=== PATIENT | female | born 1990 | race African-American/Black ===

== ENCOUNTER 2018-12-11 22:47 | Inpatient (IN) | payer OTHER ==
[2018-12-11 23:26] LABS: Amphetamine Screen,Urine Not Detected (NotDetected); Barbiturate Screen,Urine Not Detected (NotDetected); Benzodiazepines Screen,Urine Not Detected (NotDetected); Cocaine Screen,Urine Not Detected (NotDetected); Methadone Screen, Urine Not Detected (NotDetected); Opiate Screen,Urine Not Detected (NotDetected); Oxycodone Screen, Urine Not Detected (NotDetected); Phencyclidine Screen,Urine Not Detected (NotDetected); Tricyclic Antidepressant,Urine Not Detected (NotDetected); Urn Cannabinoid Scrn Detected (NotDetected)
--- NOTE | 2018-12-12 01:01 | ED ---
Psych HPI - General Source: patient Mode of arrival: EMS <Cheri Bonner - Last Filed: 12/12/18 04:21> <Fidel Granados - Last Filed: 12/12/18 08:29> - General Chief Complaint: Psychiatric Symptoms Stated Complaint: mental health Time Seen by Provider: 12/11/18 23:59 - History of Present Illness Initial Comments: 28-year-old female patient is brought to the emergency department today for psychiatric evaluation. Patient reports that her and is concerned because she recently had her children taken from her and she doesn't believe that she is thinking right or handling the situation well. Patient states that she is stressed out and does have a history of depression. States that she has been seeing "spirits" and helped one "cross over today". Patient states that her aunt is concerned about this and doesn't believe in spirits so she sent her here for further evaluation. Patient denies any suicidal or homicidal ideation. She denies taking any medications currently for psychiatric illness. Denies any alcohol or drug use. Patient denies any recent rash, fever, chills, shortness breath, chest pain, abdominal pain, nausea, vomiting, diarrhea, constipation, back pain, numbness, tingling, dizziness, weakness, hematuria, dysuria, urinary urgency, urinary frequency, headache, visual changes, or any other complaints. (Cheri Bonner) - Related Data Home Medications Medication Instructions Recorded Confirmed No Known Home Medications 12/11/18 12/11/18 Allergies Allergy/AdvReac Type Severity Reaction Status Date / Time clonazepam [From Klonopin] AdvReac TWITCHING Verified 12/11/18 23:16 DISORDER Review of Systems ROS Other: All systems not noted in ROS Statement are negative. <Cheri Bonner - Last Filed: 12/12/18 04:21> ROS Other: All systems not noted in ROS Statement are negative. <Fidel Granados - Last Filed: 12/12/18 08:29> ROS Statement: Those systems with pertinent positive or pertinent negative responses have been documented in the HPI. Past Medical History Additional Past Medical History / Comment(s): anxiety History of Any Multi-Drug Resistant Organisms: None Reported Past Surgical History: Bariatric Surgery Past Psychological History: Anxiety, Depression Smoking Status: Current every day smoker Past Alcohol Use History: None Reported Past Drug Use History: None Reported <Cheri Bonner - Last Filed: 12/12/18 04:21> General Exam Limitations: no limitations General appearance: alert, in no apparent distress, other (So well-developed, well-nourished adult female patient in no acute distress. Vital signs upon presentation are temperature 98.6F, pulse 87, respirations 20, blood pressure 121/83, pulse ox 97% on room air.) Eye exam: Present: normal appearance, PERRL, EOMI. Absent: scleral icterus, conjunctival injection, periorbital swelling ENT exam: Present: normal exam, normal oropharynx, mucous membranes moist Respiratory exam: Present: normal lung sounds bilaterally. Absent: respiratory distress, wheezes, rales, rhonchi, stridor Cardiovascular Exam: Present: regular rate, normal rhythm, normal heart sounds. Absent: systolic murmur, diastolic murmur, rubs, gallop, clicks GI/Abdominal exam: Present: soft, normal bowel sounds. Absent: distended, tenderness, guarding, rebound, rigid Neurological exam: Present: alert, oriented X3, CN II-XII intact Psychiatric exam: Present: other (Pressured speech, flight of ideas). Absent: homicidal ideation, suicidal ideation Skin exam: Present: warm, dry, intact, normal color. Absent: rash <Cheri Bonner - Last Filed: 12/12/18 04:21> Course Vital Signs 12/11/18 12/12/18 12/12/18 22:55 02:57 06:48 Temperature 98.6 F Pulse Rate 87 84 57 L Respiratory 20 16 16 Rate Blood Pressure 121/83 132/94 99/64 O2 Sat by Pulse 97 99 100 Oximetry Medical Decision Making <Cheri Bonner - Last Filed: 12/12/18 04:21> <Fidel Granados - Last Filed: 12/12/18 08:29> - Medical Decision Making 28-year-old female patient presented to the emergency department today for psychiatric evaluation. Patient does admit to seeing spirits. She does have pressured speech and flight of ideas during history and physical. Physical exam is unremarkable. She has yet to be evaluated by emergency psychiatric services. Care will be handed over to Dr. Marcum. (Bantle,Cheri M) Patient evaluated by EPS, will sign in for further psychiatric evaluation and treatment. Patient will be admitted to this institution. (Fidel Granados) - Lab Data Lab Results 12/11/18 12/11/18 Range/Units 23:00 23:00 Urine HCG, Qual Not Detected (Not Detectd) Urine Opiates Screen Not Detected (NotDetected) Ur Oxycodone Screen Not Detected (NotDetected) Urine Methadone Screen Not Detected (NotDetected) Ur Propoxyphene Screen Not Detected (NotDetected) Ur Barbiturates Screen Not Detected (NotDetected) U Tricyclic Antidepress Not Detected (NotDetected) Ur Phencyclidine Scrn Not Detected (NotDetected) Ur Amphetamines Screen Not Detected (NotDetected) U Methamphetamines Scrn Detected H (NotDetected) U Benzodiazepines Scrn Not Detected (NotDetected) Urine Cocaine Screen Not Detected (NotDetected) U Marijuana (THC) Screen Detected H (NotDetected) Disposition <Cheri Bonner - Last Filed: 12/12/18 04:21> Is patient prescribed a controlled substance at d/c from ED?: No Decision to Admit Reason: Admit from EC Decision Date: 12/12/18 Decision Time: 08:29 <Fidel Granados - Last Filed: 12/12/18 08:29> Clinical Impression: Depression, Psychosis Disposition: ADMITTED IP TO THIS [facility] Condition: Stable Referrals: None,Stated [Primary Care Provider] - 1-2 days
[2018-12-12] MEDS ORDERED: NICOTINE 21MG/24HR PATCH TRANSDERM STA (14:20)
[2018-12-12 16:01] VITALS: BMI 30.5
[2018-12-12] MEDS ORDERED: MAGNESIUM HYDROXIDE 2,400 MG/10 ML CUP PO PRN (17:01)
[2018-12-12] MEDS ORDERED: LORazepam 1 MG TAB PO PRN (17:01)
[2018-12-12] MEDS ORDERED: ZIPRASIDONE 20 MG VIAL IM PRN (17:01)
[2018-12-12] MEDS ORDERED: MAG HYDROX/AL HYDROX/SIMETH 30 ML CUP PO PRN (17:01)
--- NOTE | 2018-12-12 19:08 | P.MDCNMH ---
History of Present Illness H&P Date: 12/12/18 Chief Complaint: Finger laceration 28-year-old female with no significant past medical history presents the ED for psychiatric evaluation. We have been consulted for medical management of the patient. Patient reports cutting her right finger with a razor knife as she was trying to open a package. Patient is able to rinse out the finger lead itself dry. She denies any tetanus shot. She denies any nausea or vomiting. No fever or chills. Otherwise, patient has no complaints. She denies any headache, lower extremity edema, chest pain, shortness of breath, palpitations, changes in urination or bowel habits. No changes in appetite or weight. No dizziness, numbness, tingling, weakness of the extremities. Patient is requesting to speak with a psychiatrist in order to leave. Review of Systems All systems: negative Past Medical History Additional Past Medical History / Comment(s): anxiety History of Any Multi-Drug Resistant Organisms: None Reported Past Surgical History: Bariatric Surgery Past Psychological History: Anxiety, Depression Smoking Status: Current every day smoker Past Alcohol Use History: None Reported Past Drug Use History: None Reported Medications and Allergies Home Medications Medication Instructions Recorded Confirmed Type No Known Home Medications 12/11/18 12/11/18 History Allergies Allergy/AdvReac Type Severity Reaction Status Date / Time clonazepam [From Klonopin] AdvReac TWITCHING Verified 12/12/18 16:02 DISORDER Physical Exam Vitals: Vital Signs Temp Pulse Pulse Resp BP BP Pulse Ox 12/12/18 15:49 97.4 F L 72 18 109/74 98 12/12/18 15:14 98.8 F 89 18 114/79 99 12/12/18 13:53 89 18 110/69 99 12/12/18 06:48 57 L 16 99/64 100 12/12/18 02:57 84 16 132/94 99 12/11/18 22:55 98.6 F 87 20 121/83 97 General: [non toxic], [no distress], [appears at stated age] Derm: [warm], [dry] Head: [atraumatic], [normocephalic], [symmetric] Eyes: [EOMI], [no lid lag], [anicteric sclera] Mouth: [no lip lesion], [mucus membranes moist] Cardiovascular: [S1S2 reg], [no murmur], [positive posterior tibial pulse bilateral], Lungs: [CTA bilateral], [no rhonchi, no rales] , [no accessory muscle use] Abdominal: [soft], [ nontender to palpation], [no guarding], [no appreciable organomegaly] Ext: [no gross muscle atrophy], [no edema], [laceration, well-healed of the right thumb with granulation tissue and full mobility of the thumb] Neuro: [ CN II-XI grossly intact], [no focal neuro deficits] Psych: [Alert], [oriented], [appropriate affect] Cranial Nerve Examination - Cranial Nerves Cranial Nerve II- Optic: Intact Cranial Nerve III- Oculomotor: Intact Cranial Nerve IV- Trochlear: Intact Cranial Nerve V- Trigeminal: Intact Cranial Nerve - Abducens: Intact Cranial Nerve VII- Facial: Intact Cranial Nerve VIII- Auditory: Intact Cranial Nerve IX- Glossopharyngeal: Intact Cranial Nerve X- Vagus: Intact Cranial Nerve XI- Accessory: Intact Cranial Nerve XII- Hypoglossal: Intact Results Labs: Abnormal Lab Results - Last 24 Hours (Table) 12/11/18 Range/Units 23:00 U Methamphetamines Scrn Detected H (NotDetected) U Marijuana (THC) Screen Detected H (NotDetected) Assessment and Plan Assessment: Assessment and plan 1. Finger laceration 1. Healing well with granulation tissue. Patient is neurovascular intact. Would recommend tetanus shot. Will continue to monitor. Thank you for this consult. Please call with any additional questions.
[2018-12-13] MEDS: NICOTINE 21MG/24HR PATCH TRANSDERM SCH (08:43)
[2018-12-13 08:52] LABS: Basophils % (A) 1 %; Eosinophils # (A) 0.1 k/uL (0-0.7); Eosinophils % (A) 2 %; HGB 14.1 gm/dL (11.4-16.0); Hypochromasia Slight; Lymphocytes # (A) 2.2 k/uL (1.0-4.8); Lymphocytes % (A) 42 %; MCH 29.4 pg (25.0-35.0); MCHC 31.3 g/dL (31.0-37.0); MCV 93.9 fL (80.0-100.0); Mean Platelet Volume 7.9; Monocytes # (A) 0.3 k/uL (0-1.0); Monocytes % (A) 6 %; Neutrophils # (A) 2.5 k/uL (1.3-7.7); Neutrophils % (A) 47 %; Platelet Count 291 k/uL (150-450); RBC 4.79 m/uL (3.80-5.40); RDW 12.5 % (11.5-15.5); WBC 5.3 k/uL (3.8-10.6)
[2018-12-13 09:11] LABS: ALT 19 U/L (9-52); AST 14 U/L (14-36); Albumin 3.9 g/dL (3.5-5.0); Alkaline Phosphatase 66 U/L (38-126); Anion Gap 8 mmol/L; Blood Urea Nitrogen 11 mg/dL (7-17); Calcium 9.6 mg/dL (8.4-10.2); Carbon Dioxide 27 mmol/L (22-30); Chloride 106 mmol/L (98-107); Cholesterol 152 mg/dL (<200); Glucose 95 mg/dL (74-99); HDL Cholesterol 23 mg/dL (40-60); LDL Cholesterol,Calculated 114 mg/dL (0-99); Potassium 4.1 mmol/L (3.5-5.1); Sodium 141 mmol/L (137-145); Total Bilirubin 0.7 mg/dL (0.2-1.3); Total Protein 7.1 g/dL (6.3-8.2); Triglycerides 76 mg/dL (<150)
--- NOTE | 2018-12-13 13:16 | P.HP ---
Psychiatric H&P - . H&P Date: 12/13/18 History & Physical: Allergies Allergy/AdvReac Type Severity Reaction Status Date / Time clonazepam [From Klonopin] AdvReac TWITCHING Verified 12/12/18 16:02 DISORDER Vital Signs Temp 98.6 F 12/13/18 06:58 Pulse 87 12/13/18 06:58 Resp 18 12/13/18 06:58 BP 97/63 12/13/18 06:58 Pulse Ox 98 12/12/18 15:49 Laboratory Last Values WBC 5.3 k/uL (3.8-10.6) 12/13/18 08:17 RBC 4.79 m/uL (3.80-5.40) 12/13/18 08:17 Hgb 14.1 gm/dL (11.4-16.0) 12/13/18 08:17 Hct 45.0 % (34.0-46.0) 12/13/18 08:17 MCV 93.9 fL (80.0-100.0) 12/13/18 08:17 MCH 29.4 pg (25.0-35.0) 12/13/18 08:17 MCHC 31.3 g/dL (31.0-37.0) 12/13/18 08:17 RDW 12.5 % (11.5-15.5) 12/13/18 08:17 Plt Count 291 k/uL (150-450) 12/13/18 08:17 Neutrophils % 47 % 12/13/18 08:17 Lymphocytes % 42 % 12/13/18 08:17 Monocytes % 6 % 12/13/18 08:17 Eosinophils % 2 % 12/13/18 08:17 Basophils % 1 % 12/13/18 08:17 Neutrophils # 2.5 k/uL (1.3-7.7) 12/13/18 08:17 Lymphocytes # 2.2 k/uL (1.0-4.8) 12/13/18 08:17 Monocytes # 0.3 k/uL (0-1.0) 12/13/18 08:17 Eosinophils # 0.1 k/uL (0-0.7) 12/13/18 08:17 Basophils # 0.0 k/uL (0-0.2) 12/13/18 08:17 Hypochromasia Slight 12/13/18 08:17 Sodium 141 mmol/L (137-145) 12/13/18 08:17 Potassium 4.1 mmol/L (3.5-5.1) 12/13/18 08:17 Chloride 106 mmol/L (98-107) 12/13/18 08:17 Carbon Dioxide 27 mmol/L (22-30) 12/13/18 08:17 Anion Gap 8 mmol/L 12/13/18 08:17 BUN 11 mg/dL (7-17) 12/13/18 08:17 Creatinine 0.84 mg/dL (0.52-1.04) 12/13/18 08:17 Est GFR (CKD-EPI)AfAm >90 (>60 ml/min/1.73 sqM) 12/13/18 08:17 Est GFR (CKD-EPI)NonAf >90 (>60 ml/min/1.73 sqM) 12/13/18 08:17 Glucose 95 mg/dL (74-99) 12/13/18 08:17 Calcium 9.6 mg/dL (8.4-10.2) 12/13/18 08:17 Total Bilirubin 0.7 mg/dL (0.2-1.3) 12/13/18 08:17 AST 14 U/L (14-36) 12/13/18 08:17 ALT 19 U/L (9-52) 12/13/18 08:17 Alkaline Phosphatase 66 U/L (38-126) 12/13/18 08:17 Total Protein 7.1 g/dL (6.3-8.2) 12/13/18 08:17 Albumin 3.9 g/dL (3.5-5.0) 12/13/18 08:17 Triglycerides 76 mg/dL (<150) 12/13/18 08:17 Cholesterol 152 mg/dL (<200) 12/13/18 08:17 LDL Cholesterol, Calc 114 mg/dL (0-99) H 12/13/18 08:17 HDL Cholesterol 23 mg/dL (40-60) L 12/13/18 08:17 Urine HCG, Qual Not Detected (Not Detectd) 12/11/18 23:00 Urine Opiates Screen Not Detected (NotDetected) 12/11/18 23:00 Ur Oxycodone Screen Not Detected (NotDetected) 12/11/18 23:00 Urine Methadone Screen Not Detected (NotDetected) 12/11/18 23:00 Ur Propoxyphene Screen Not Detected (NotDetected) 12/11/18 23:00 Ur Barbiturates Screen Not Detected (NotDetected) 12/11/18 23:00 U Tricyclic Antidepress Not Detected (NotDetected) 12/11/18 23:00 Ur Phencyclidine Scrn Not Detected (NotDetected) 12/11/18 23:00 Ur Amphetamines Screen Not Detected (NotDetected) 12/11/18 23:00 U Methamphetamines Scrn Detected (NotDetected) H 12/11/18 23:00 U Benzodiazepines Scrn Not Detected (NotDetected) 12/11/18 23:00 Urine Cocaine Screen Not Detected (NotDetected) 12/11/18 23:00 U Marijuana (THC) Screen Detected (NotDetected) H 12/11/18 23:00 Assessment and Plan Assessment: 28-year-old female patient is brought to the emergency department today for psychiatric evaluation. Patient reports that her and is concerned because she recently had her children taken from her and she doesn't believe that she is thinking right or handling the situation well. Patient states that she is stressed out and does have a history of depression. States that she has been seeing "spirits" and helped one "cross over today". Patient states that her aunt is concerned about this and doesn't believe in spirits so she sent her here for further evaluation. Patient denies any suicidal or homicidal ideation. She denies taking any medications currently for psychiatric illness. Denies any alcohol or drug use. Patient denies any recent rash, fever, chills, shortness breath, chest pain, abdominal pain, nausea, vomiting, diarrhea, constipation, back pain, numbness, tingling, dizziness, weakness, hematuria, dysuria, urinary urgency, urinary frequency, headache, visual changes, or any other complaints. Picked up by border patrol and local police as well as petitioned for stating she was hearing multiple voices that were telling her to go to [place]. Patient informs this junior underwriter that Her Aunties works with [employer]), travels with her and told her to go to [employer] to buy acres for marijuana, growing, also informs this junior underwriter that the Auntie told her that she put the numbers together and that 2 people are going to is house to kill him. Patient vague about who or where. "Somewhere in [place]. Patient began to weap and scream and states "I am grieving the loss of my children they took on . Patient continuew to perseverate and ruminate with rapid pressure speech regarding her Auntie and also mentioned that "Auntie cannot reach the other side because her family is in trouble." patient is from [place], [place] with unknown hx and residential status. Contacted [facility] in- [place], [place] who informed this junior underwriter that the patient was not currently in their system. Patient record archived, staff member Meka to call this junior underwriter back with hx if found. Attempted to call Mom same number as patient no mailbox set up. Will discuss with charge nurse and call Jose Mercer for further assistance. Phone number for [facility]: or . Fax- [phone]. - Related Data Home Medications Medication Instructions Recorded Confirmed No Known Home Medications 12/11/18 12/11/18 Allergies Allergy/AdvReac Type Severity Reaction Status Date / Time clonazepam [From Klonopin] AdvReac TWITCHING Verified 12/11/18 23:16 DISORDER Past Medical History Additional Past Medical History / Comment(s): anxiety History of Any Multi-Drug Resistant Organisms: None Reported Past Surgical History: Bariatric Surgery Past Psychological History: Anxiety, Depression Smoking Status: Current every day smoker Past Alcohol Use History: None Reported Past Drug Use History: None Reported Lab Data Lab Results 12/11/18 12/11/18 Range/Units 23:00 23:00 Urine HCG, Qual Not Detected (Not Detectd) Urine Opiates Screen Not Detected (NotDetected) Ur Oxycodone Screen Not Detected (NotDetected) Urine Methadone Screen Not Detected (NotDetected) Ur Propoxyphene Screen Not Detected (NotDetected) Ur Barbiturates Screen Not Detected (NotDetected) U Tricyclic Antidepress Not Detected (NotDetected) Ur Phencyclidine Scrn Not Detected (NotDetected) Ur Amphetamines Screen Not Detected (NotDetected) U Methamphetamines Scrn Detected H (NotDetected) U Benzodiazepines Scrn Not Detected (NotDetected) Urine Cocaine Screen Not Detected (NotDetected) U Marijuana (THC) Screen Detected H (NotDetected) Musculoskeletal Examination - Abnormal/Involuntary Movements: [none] Strength: [greater than antigravity (greater than/equal to 3/5) in all extremities:] Muscle Tone: [no impairment Gait: [grossly normal Station: [grossly normal] Mental Status Examination - General Appearance: [ casual, bizarre, appears older than stated age Speech/Language: [ rapid, rambled, expressive, loud] Attitude/Behavior: [cooperative Mood: [ depressed, euphoric, anxious, elated, irritable, angry, fearful] Affect: [lively, incongruent, labile Orientation: [time, person, place situation] Thought Content: [delusions Risk Factors: [suicidal (ideations, plan), and/or Homicidal (ideations, plan), other] Perception: hallucinations (auditory, visual) Thought Processes: [ concrete, circumstantial, tangential] Concentration/Attention Span: [ impaired] [Per observation and interview with the patient] Recent Memory: [impaired] [0 out of 3 in 3 minutes] Remote Memory: [wnl] [past events, as related history] Intelligence: [below average] [based on history, based on vocabulary, syntax, grammar, and content] Judgement: [ poor] [per patient's behavior/history of present illness] Insight: [poor] [understanding severity of illness/history of present illness] Admitting Diagnosis: [Affective disorder acute psychosis] Patient Strengths - Able to vocalize needs: [x] Values and traditions: [x] Patient Limitations: [medication, non-compliance, pathological/unsupported environment, intellectual impairment, legal issues, lack of social supports] Initial Plan of Care: [Is admitted on a voluntary basis and will leave patient on 15 minute checks. She'll be evaluated by medicine psychiatry social work nursing staff occupational therapy. She'll be placed in [facility] therapeutic environment or by she'll be evaluated for a biopsychosocial history and sub stance abuse history. She's had 3 years recovering positive for amphetamines when she came in the hospital. due to her rapid cycling mood she will be placed on lamictal and prolixin.] Estimated Length of Stay: [7 days] Initial Discharge Plan: [[facility] Prognosis: [fair Justification for Inpatient Hospitalization - [Hallucinations, delusions, agitation, anxiety, depression resulting in signif icant loss of functioning.] [Dangerous to self, others, or property with need for controlled environment.] [Emotional or behavioral conditions and complications requiring 24 hour medical and nursing care.] [Need for special drug therapy, or other therapeutic program requiring continuous hospitalization.] [Failure of social or occupational functioning.] [Inability to meet basic life and health needs.] (1) Bipolar affective disorder, current episode manic Current Visit: Yes Status: Acute Priority: High Code(s): F31.9 - BIPOLAR DISORDER, UNSPECIFIED SNOMED Code(s): 397704286 (2) Psychosis Current Visit: Yes Status: Acute Priority: High Code(s): F29 - UNSP PSYCHOSIS NOT DUE TO A SUBSTANCE OR KNOWN PHYSIOL COND SNOMED Code(s): 44538598 Time with Patient: Less than 30
[2018-12-13 18:31] LABS: Hemoglobin A1C 4.5 % (4.0-6.0)
[2018-12-13] MEDS ORDERED: lamoTRIgine 25 MG TAB PO SCH (21:00)
[2018-12-14] MEDS: NICOTINE 21MG/24HR PATCH TRANSDERM SCH (08:25)
--- NOTE | 2018-12-14 12:00 | P.PN ---
Subjective Progress Note Date: 12/14/18 Principal diagnosis: bipolar manic chart reviewed. Discussed with nursing staff. Patint interviewed in her room. She still is tearful, depressed and anxious with pressured speech. Objective - Vital Signs Vital signs: Vital Signs Temp 98.7 F 12/14/18 06:25 Pulse 94 12/14/18 06:25 Resp 16 12/14/18 06:25 BP 105/58 12/14/18 06:25 Pulse Ox 98 12/12/18 15:49 - Labs CBC & Chem 7: 12/13/18 08:17 12/13/18 08:17 Assessment and Plan Assessment: 28-year-old female patient is brought to the emergency department today for psychiatric evaluation. Patient reports that her and is concerned because she recently had her children taken from her and she doesn't believe that she is thinking right or handling the situation well. Patient states that she is stressed out and does have a history of depression. States that she has been seeing "spirits" and helped one "cross over today". Patient states that her aunt is concerned about this and doesn't believe in spirits so she sent her here for further evaluation. Patient denies any suicidal or homicidal ideation. She denies taking any medications currently for psychiatric illness. Denies any alcohol or drug use. Patient denies any recent rash, fever, chills, shortness breath, chest pain, abdominal pain, nausea, vomiting, diarrhea, constipation, ba ck pain, numbness, tingling, dizziness, weakness, hematuria, dysuria, urinary urgency, urinary frequency, headache, visual changes, or any other complaints. Picked up by border patrol and local police as well as petitioned for stating she was hearing multiple voices that were telling her to go to [place]. Patient informs this movie writer that Her Aunties works with numbers, travels with her and told her to go to [place] to buy acres for marijuana, growing, also informs this movie writer that the Auntie told her that she put the numbers together and that 2 people are going to house to kill him. Patient vague about who or where. "Somewhere in [place]. Patient began to weap and scream and states "I am grieving the loss of my children they took on . Patient continuew to perseverate and ruminate with rapid pressure speech regarding her Auntie and also mentioned that "Auntie cannot reach the other side because her family is in trouble." patient is from [place], [place] with unknown hx and residential status. [facility] [place] who informed this movie writer that the patient was not currently in their system. Patient record archived, staff member Meka to call this movie writer back with hx if found. Attempted to call Mom same number as patient no mailbox set up. Will discuss with charge nurse and call Jose Mercer for further assistance. Phone number for [facility]: or . Fax- [phone]. - Related Data Home Medications Medication Instructions Recorded Confirmed No Known Home Medications 12/11/18 12/11/18 Allergies Allergy/AdvReac Type Severity Reaction Status Date / Time clonazepam [From Klonopin] AdvReac TWITCHING Verified 12/11/18 23:16 DISORDER Past Medical History Additional Past Medical History / Comment(s): anxiety History of Any Multi-Drug Resistant Organisms: None Reported Past Surgical History: Bariatric Surgery Past Psychological History: Anxiety, Depression Smoking Status: Current every day smoker Past Alcohol Use History: None Reported Past Drug Use History: None Reported Lab Data Lab Results 12/11/18 12/11/18 Range/Units 23:00 23:00 Urine HCG, Qual Not Detected (Not Detectd) Urine Opiates Screen Not Detected (NotDetected) Ur Oxycodone Screen Not Detected (NotDetected) Urine Methadone Screen Not Detected (NotDetected) Ur Propoxyphene Screen Not Detected (NotDetected) Ur Barbiturates Screen Not Detected (NotDetected) U Tricyclic Antidepress Not Detected (NotDetected) Ur Phencyclidine Scrn Not Detected (NotDetected) Ur Amphetamines Screen Not Detected (NotDetected) U Methamphetamines Scrn Detected H (NotDetected) U Benzodiazepines Scrn Not Detected (NotDetected) Urine Cocaine Screen Not Detected (NotDetected) U Marijuana (THC) Screen Detected H (NotDetected) Musculoskeletal Examination - Abnormal/Involuntary Movements: [none] Strength: [greater than antigravity (greater than/equal to 3/5) in all extremities:] Muscle Tone: [no impairment Gait: [grossly normal Station: [grossly normal] Mental Status Examination - General Appearance: [ casual, bizarre, appears older than stated age Speech/Language: [ rapid, rambled, expressive, loud] Attitude/Behavior: [cooperative Mood: [ depressed, euphoric, anxious, elated, irritable, angry, fearful] Affect: [lively, incongruent, labile Orientation: [time, person, place situation] Thought Content: [delusions Risk Factors: [suicidal (ideations, plan), and/or Homicidal (ideations, plan), other] Perception: hallucinations (auditory, visual) Thought Processes: [ concrete, circumstantial, tangential] Concentration/Attention Span: [ impaired] [Per observation and interview with the patient] Recent Memory: [impaired] [0 out of 3 in 3 minutes] Remote Memory: [wnl] [past events, as related history] Intelligence: [below average] [based on history, based on vocabulary, syntax, grammar, and content] Judgement: [ poor] [per patient's behavior/history of present illness] Insight: [poor] [understanding severity of illness/history of present illness] Admitting Diagnosis: [Affective disorder acute psychosis] Patient Limitations: [medication, non-compliance, pathological/unsupported environment, intellectual impairment, legal issues, lack of social supports] Initial Plan of Care: [Is admitted on a voluntary basis and will leave patient on 15 minute checks. She'll be evaluated by medicine psychiatry social work nursing staff occupational therapy. She'll be placed in [facility] therapeutic environment or by she'll be evaluated for a biopsychosocial history and substance abuse history. She's had 3 years recovering positive for amphetamines when she came in the hospital. due to her rapid cycling mood she will be placed on lamictal and prolixin.] 12/14/2018: increase prolixin 3 mg po qhs and increase lmictal 50 mg po qhs Estimated Length of Stay: [6 days] Initial Discharge Plan: [home, [facility] Prognosis: [fair Justification for Inpatient Hospitalization - [Hallucinations, delusions, agitation, anxiety, depression resulting in significant loss of functioning.] (1) Bipolar affective disorder, current episode manic Current Visit: Yes Status: Acute Priority: High Code(s): F31.9 - BIPOLAR DISORDER, UNSPECIFIED SNOMED Code(s): 476527821 (2) Psychosis Current Visit: Yes Status: Acute Priority: High Code(s): F29 - UNSP PSYCHOSIS NOT DUE TO A SUBSTANCE OR KNOWN PHYSIOL COND SNOMED Code(s): 49092055 Time with Patient: Less than 30
[2018-12-14] MEDS ORDERED: lamoTRIgine 25 MG TAB PO SCH (21:00)
[2018-12-15] MEDS: NICOTINE 21MG/24HR PATCH TRANSDERM SCH (09:28)
--- NOTE | 2018-12-15 10:41 | P.PN ---
Subjective Progress Note Date: 12/15/18 Principal diagnosis: bipolar manic chart reviewed. Discussed with nursing staff. Patient interviewed in her room. She still is tearful, depressed and anxious with pressured speech. 12/15/2018: Chart reviewed and discussed with nursing staff. Patient tends to isolate to her room has minimal complaints today and his hair internal medications. She is not interacting with peers and staff in a positive manner but tends to isolate and sleep in bed. Objective - Vital Signs Vital signs: Vital Signs Temp 98.5 F 12/15/18 06:43 Pulse 77 12/15/18 06:43 Resp 16 12/15/18 06:43 BP 103/50 12/15/18 06:43 Pulse Ox 98 12/12/18 15:49 Intake & Output 12/14/18 12/15/18 12/15/18 18:59 06:59 18:59 Weight 80.751 kg - Labs CBC & Chem 7: 12/13/18 08:17 12/13/18 08:17 Assessment and Plan Assessment: 28-year-old female patient is brought to the emergency department today for psychiatric evaluation. Patient reports that her and is concerned because she recently had her children taken from her and she doesn't believe that she is thinking right or handling the situation well. Patient states that she is stressed out and does have a history of depression. States that she has been seeing "spirits" and helped one "cross over today". Patient states that her aunt is concerned about this and doesn't believe in spirits so she sent her here for further evaluation. Patient denies any suicidal or homicidal ideation. She denies taking any medications currently for psychiatric illness. Denies any alcohol or drug use. Patient denies any recent rash, fever, chills, shortness breath, chest pain, abdominal pain, nausea, vomiting, diarrhea, constipation, back pain, numbness, tingling, dizziness, weakness, hematuria, dysuria, urinary urgency, urinary frequency, headache, visual changes, or any other complaints. Picked up by border patrol and local police as well as petitioned for stating she was hearing multiple voices that were telling her to go to [place]. Patient informs this clinical writer that Her Aunties works with [employer], travels with her and told her to go to [place] to buy acres for marijuana, growing, also informs this clinical writer that the Auntie told her that she put the numbers together and that 2 people are going to is house to kill him. Patient vague about who or where. "Somewhere in [place]. Patient began to weap and scream and states "I am grieving the loss of my children they took on . Patient continuew to perseverate and ruminate with rapid pressure speech regarding her Auntie and also mentioned that "Auntie cannot reach the other side because her family is in trouble." patient is from [place], [place] with unknown hx and residential status. [facility] [place], [place] who informed this clinical writer that the patient was not currently in their system. Patient record archived, staff member Meka to call this clinical writer back with hx if found. Attempted to call Mom same number as patient no mailbox set up. Will discuss with charge nurse and call Jose Mercer for further assistance. Phone number for [facility]: or . Fax- [phone]. - Related Data Home Medications Medication Instructions Recorded Confirmed No Known Home Medications 12/11/18 12/11/18 Allergies Allergy/AdvReac Type Severity Reaction Status Date / Time clonazepam [From Klonopin] AdvReac TWITCHING Verified 12/11/18 23:16 DISORDER Past Medical History Additional Past Medical History / Comment(s): anxiety History of Any Multi-Drug Resistant Organisms: None Reported Past Surgical History: Bariatric Surgery Past Psychological History: Anxiety, Depression Smoking Status: Current every day smoker Past Alcohol Use History: None Reported Past Drug Use History: None Reported Lab Data Lab Results 12/11/18 12/11/18 Range/Units 23:00 23:00 Urine HCG, Qual Not Detected (Not Detectd) Urine Opiates Screen Not Detected (NotDetected) Ur Oxycodone Screen Not Detected (NotDetected) Urine Methadone Screen Not Detected (NotDetected) Ur Propoxyphene Screen Not Detected (NotDetected) Ur Barbiturates Screen Not Detected (NotDetected) U Tricyclic Antidepress Not Detected (NotDetected) Ur Phencyclidine Scrn Not Detected (NotDetected) Ur Amphetamines Screen Not Detected (NotDetected) U Methamphetamines Scrn Detected H (NotDetected) U Benzodiazepines Scrn Not Detected (NotDetected) Urine Cocaine Screen Not Detected (NotDetected) U Marijuana (THC) Screen Detected H (NotDetected) Musculoskeletal Examination - Abnormal/Involuntary Movements: [none] Strength: [greater than antigravity (greater than/equal to 3/5) in all extremities:] Muscle Tone: [no impairment Gait: [grossly normal Station: [grossly normal] Mental Status Examination - General Appearance: [ casual, bizarre, appears older than stated age Speech/Language: [ rapid, rambled, expressive, loud] Attitude/Behavior: [cooperative Mood: [ depressed, euphoric, anxious, elated, irritable, angry, fearful] Affect: [lively, incongruent, labile Orientation: [time, person, place situation] Thought Content: [delusions Risk Factors: [suicidal (ideations, plan), and/or Homicidal (ideations, plan), other] Perception: hallucinations (auditory, visual) Thought Processes: [ concrete, circumstantial, tangential] Concentration/Attention Span: [ impaired] [Per observation and interview with the patient] Recent Memory: [impaired] [0 out of 3 in 3 minutes] Remote Memory: [wnl] [past events, as related history] Intelligence: [below average] [based on history, based on vocabulary, syntax, grammar, and content] Judgement: [ poor] [per patient's behavior/history of present illness] Insight: [poor] [understanding severity of illness/history of present illness] Admitting Diagnosis: [Affective disorder acute psychosis] Patient Limitations: [medication, non-compliance, pathological/unsupported environment, intellectual impairment, legal issues, lack of social supports] Initial Plan of Care: [Is admitted on a voluntary basis and will leave patient on 15 minute checks. She'll be evaluated by medicine psychiatry social work nursing staff occupational therapy. She'll be placed in [facility] therapeutic environment or by she'll be evaluated for a biopsychosocial history and substance abuse history. She's had 3 years recovering positive for amphetamines when she came in the hospital. due to her rapid cycling mood she will be placed on lamictal and prolixin.] 12/14/2018: increase prolixin 3 mg po qhs and increase lamictal 50 mg po qhs 12/15/2018: Maintain 15 minute checks for safety and encourage her to be in [facility]. Increase her Lamictal to 100 mg by mouth daily at bedtime Estimated Length of Stay: [5 days] Initial Discharge Plan: [home, [facility] Prognosis: [fair Justification for Inpatient Hospitalization - [Hallucinations, delusions, agitation, anxiety, depression resulting in significant loss of functioning.] (1) Bipolar affective disorder, current episode manic Current Visit: Yes Status: Acute Priority: High Code(s): F31.9 - BIPOLAR DISORDER, UNSPECIFIED SNOMED Code(s): 500919761 (2) Psychosis Current Visit: Yes Status: Acute Priority: High Code(s): F29 - UNSP PSYCHOSIS NOT DUE TO A SUBSTANCE OR KNOWN PHYSIOL COND SNOMED Code(s): 49453456 Time with Patient: Less than 30
[2018-12-15] MEDS: ACETAMINOPHEN TAB 325 MG TAB PO PRN (15:50)
[2018-12-15] MEDS ORDERED: lamoTRIgine 100 MG TAB PO SCH (21:00)
[2018-12-16] MEDS: NICOTINE 21MG/24HR PATCH TRANSDERM SCH (08:04)
--- NOTE | 2018-12-16 14:10 | P.PN ---
Subjective Progress Note Date: 12/16/18 Principal diagnosis: bipolar manic chart reviewed. Discussed with nursing staff. Patient interviewed in her room. She still is tearful, depressed and anxious with pressured speech. 12/15/2018: Chart reviewed and discussed with nursing staff. Patient tends to isolate to her room has minimal complaints today and his hair internal medications. She is not interacting with peers and staff in a positive manner but tends to isolate and sleep in bed. 12/16/2018: Chart reviewed, discussed in detail with nursing staff, discussed at team meeting this morning regarding disposition and discharge. Patient interviewed and found to be more interactive and not suicidal not homicidal and has a positive attitude about her treatment. Objective - Vital Signs Vital signs: Vital Signs Temp 98.5 F 12/16/18 03:30 Pulse 97 12/16/18 03:30 Resp 18 12/16/18 03:30 BP 116/73 12/16/18 03:30 Pulse Ox 98 12/12/18 15:49 Intake & Output 12/15/18 12/16/18 12/16/18 18:59 06:59 18:59 Weight 80.751 kg - Labs CBC & Chem 7: 12/13/18 08:17 12/13/18 08:17 Assessment and Plan Assessment: 28-year-old female patient is brought to the emergency department today for psychiatric evaluation. Patient reports that her and is concerned because she recently had her children taken from her and she doesn't believe that she is thinking right or handling the situation well. Patient states that she is stressed out and does have a history of depression. States that she has been seeing "spirits" and helped one "cross over today". Patient states that her aunt is concerned about this and doesn't believe in spirits so she sent her here for further evaluation. Patient denies any suicidal or homicidal ideation. She denies taking any medications currently for psychiatric illness. Denies any alcohol or drug use. Patient denies any recent rash, fever, chills, shortness breath, chest pain, abdominal pain, nausea, vomiting, diarrhea, constipation, back pain, numbness, tingling, dizziness, weakness, hematuria, dysuria, urinary urgency, urinary frequency, headache, visual changes, or any other complaints. Picked up by border patrol and local police as well as petitioned for stating she was hearing multiple voices that were telling her to go to [place]. Patient informs this typewriter repairer that Her Aunties works with numbers, travels with her and told her to go to [place] to buy acres for marijuana, growing, also informs this typewriter repairer that the Auntie told her that she put the numbers together and that 2 people are going to house to kill him. Patient vague about who or where. "Somewhere in [place]. Patient began to weap and scream and states "I am grieving the loss of my children they took on . Patient continuew to perseverate and ruminate with rapid pressure speech regarding her Auntie and also mentioned that "Auntie cannot reach the other side because her family is in trouble." patient is from [place], [place] with unknown hx and residential status. Contact[facility] [place] who informed this typewriter repairer that the patient was not currently in their system. Patient record archived, staff member Meka to call this typewriter repairer back with hx if found. Attempted to call Mom same number as patient no mailbox set up. Will discuss with charge nurse and call Jose Mercer for further assistance. Phone number for [facility]: or . Fax- [phone]. Mental Status Examination - General Appearance: [ casual, appears older than stated age Speech/Language: [ rapid, expressive, soft] Attitude/Behavior: [cooperative Mood: [ lessdepressed, euphoric, less anxious] Affect: [lively, incongruent, labile Orientation: [time, person, place situation] Thought Content: [delusions have disappeared Risk Factors: [suicidal (ideations, plan), and/or Homicidal (ideations, plan), other] Perception: denies hallucinations (auditory, visual) Thought Processes: [ concrete, circumstantial, tangential] Concentration/Attention Span: [within normal] [Per observation and interview with the patient] Recent Memory: [within normal] [0 out of 3 in 3 minutes] Remote Memory: [wnl] [past events, as related history] Intelligence: [below average] [based on history, based on vocabulary, syntax, grammar, and content] Judgement: [ fair] [per patient's behavior/history of present illness] Insight: [fair] [understanding severity of illness/history of present illness] Admitting Diagnosis: [Affective disorder acute psychosis] Patient Limitations: [medication, non-compliance, pathological/unsupported environment, intellectual impairment, legal issues, lack of social supports] Initial Plan of Care: [Is admitted on a voluntary basis and will leave patient on 15 minute checks. She'll be evaluated by medicine psychiatry social work nursing staff occupational therapy. She'll be placed in [facility] therapeutic environment or by she'll be evaluated for a biopsychosocial history and substance abuse history. She's had 3 years recovering positive for amphetamines when she came in the hospital. due to her rapid cycling mood she will be placed on lamictal and prolixin.] 12/14/2018: increase prolixin 3 mg po qhs and increase lamictal 50 mg po qhs 12/15/2018: Maintain 15 minute checks for safety and encourage her to be in [facility] [place] [facility]. Increase her Lamictal to 100 mg by mouth daily at bedtime 12/16/2018: Maintain 15 minute checks for safety and encourage her to be in [facility] [place] [facility] however she tends to isolate. Increase Lamictal to 200 mg by mouth daily at bedtime. Maintain Prolixin at current dose. We will observe in follow-up for further titration of medications needed. Estimated Length of Stay: [2 days] Initial Discharge Plan: [[facility] Prognosis: [fair Justification for Inpatient Hospitalization - [Hallucinations, delusions, agitation, anxiety, depression resulting in significant loss of functioning.] (1) Bipolar affective disorder, current episode manic Current Visit: Yes Status: Acute Priority: High Code(s): F31.9 - BIPOLAR DISORDER, UNSPECIFIED SNOMED Code(s): 155754960 (2) Psychosis Current Visit: Yes Status: Acute Priority: High Code(s): F29 - UNSP PSYCHOSIS NOT DUE TO A SUBSTANCE OR KNOWN PHYSIOL COND SNOMED Code(s): 77774948 Time with Patient: Less than 30
[2018-12-16] MEDS: lamoTRIgine 100 MG TAB PO SCH (21:24)
[2018-12-16] MEDS: ACETAMINOPHEN TAB 325 MG TAB PO PRN (21:25)
[2018-12-17] MEDS: NICOTINE 21MG/24HR PATCH TRANSDERM SCH (07:43)
--- NOTE | 2018-12-17 11:22 | P.PN ---
Subjective Progress Note Date: 12/17/18 Principal diagnosis: bipolar manic chart reviewed. Discussed with nursing staff. Patient interviewed in her room. She still is tearful, depressed and anxious with pressured speech. 12/15/2018: Chart reviewed and discussed with nursing staff. Patient tends to isolate to her room has minimal complaints today and his hair internal medications. She is not interacting with peers and staff in a positive manner but tends to isolate and sleep in bed. 12/16/2018: Chart reviewed, discussed in detail with nursing staff, discussed at team meeting this morning regarding disposition and discharge. Patient interviewed and found to be more interactive and not suicidal not homicidal and has a positive attitude about her treatment. 12/17/2018: Chart reviewed and discussed in team regarding legal matters back in [place] and possibility for follow-up here in [place] for mental health services. Chief complaint today is fatigue but that is gotten better as she got used to the medications she denies any suicidal or homicidal ideation at the current time. Objective - Vital Signs Vital signs: Vital Signs Temp 98.5 F 12/17/18 06:45 Pulse 72 12/17/18 06:45 Resp 16 12/17/18 06:45 BP 106/57 12/17/18 06:45 Pulse Ox 98 12/12/18 15:49 - Labs CBC & Chem 7: 12/13/18 08:17 12/13/18 08:17 Assessment and Plan Assessment: 28-year-old female patient is brought to the emergency department today for psychiatric evaluation. Patient reports that her and is concerned because she recently had her children taken from her and she doesn't believe that she is thinking right or handling the situation well. Patient states that she is stressed out and does have a history of depression. States that she has been seeing "spirits" and helped one "cross over today". Patient states that her aunt is concerned about this and doesn't believe in spirits so she sent her here for further evaluation. Patient denies any suicidal or homicidal ideation. She denies taking any medications currently for psychiatric illness. Denies any alcohol or drug use. Patient denies any recent rash, fever, chills, shortness breath, chest pain, abdominal pain, nausea, vomiting, diarrhea, constipation, back pain, numbness, tingling, dizziness, weakness, hematuria, dysuria, urinary urgency, urinary frequency, headache, visual changes, or any other complaints. Picked up by border patrol and local police as well as petitioned for stating she was hearing multiple voices that were telling her to go to [place]. Patient informs this telegraphic typewriter operator that Her Aunties works with numbers, travels with her and told her to go to [employer] to buy acres for marijuana, growing, also informs this telegraphic typewriter operator that the Auntie told her that she put the numbers together and that 2 people are going to house to kill him. Patient vague about who or where. "Somewhere in [place]. Patient began to weap and scream and states "I am grieving the loss of my children they took on . Patient continuew to perseverate and ruminate with rapid pressure speech regarding her Auntie and also mentioned that "Auntie cannot reach the other side because her family is in trouble." patient is from [place], [place] with unknown hx and residential status. Contacted [facility] in[place], [place] who informed this telegraphic typewriter operator that the patient was not currently in their system. Patient record archived, staff member Meka to call this telegraphic typewriter operator back with hx if found. Attempted to call Mom same number as patient no mailbox set up. Will discuss with charge nurse and call Jose Mercer for further assistance. Phone number for [facility]: or . Fax- [phone]. Mental Status Examination - General Appearance: [ casual, appears older than stated age Speech/Language: [ rapid, expressive, soft] Attitude/Behavior: [cooperative Mood: [ less depressed, euphoric, less anxious] Affect: [lively, incongruent, labile Orientation: [time, person, place situation] Thought Content: [delusions have disappeared Risk Factors: [suicidal (ideations, plan), and/or Homicidal (ideations, plan), other] Perception: denies hallucinations (auditory, visual) Thought Processes: [ concrete, circumstantial, tangential] Concentration/Attention Span: [within normal] [Per observation and interview with the patient] Recent Memory: [within normal] [0 out of 3 in 3 minutes] Remote Memory: [wnl] [past events, as related history] Intelligence: [below average] [based on history, based on vocabulary, syntax, grammar, and content] Judgement: [ fair] [per patient's behavior/history of present illness] Insight: [fair] [understanding severity of illness/history of present illness] Admitting Diagnosis: [Affective disorder acute psychosis] Patient Limitations: [medication, non-compliance, pathological/unsupported environment, intellectual impairment, legal issues, lack of social supports] Initial Plan of Care: [Is admitted on a voluntary basis and will leave patient on 15 minute checks. She'll be evaluated by medicine psychiatry social work nursing staff occupational therapy. She'll be placed in [facility] [place] [facility] therapeutic environment or by she'll be evaluated for a biopsychosocial history and substance abuse history. She's had 3 years recovering positive for amphetamines when she came in the hospital. due to her rapid cycling mood she will be placed on lamictal and prolixin.] 12/14/2018: increase prolixin 3 mg po qhs and increase lamictal 50 mg po qhs 12/15/2018: Maintain 15 minute checks for safety and encourage her to be in [place] [facility]. Increase her Lamictal to 100 mg by mouth daily at bedtime 12/16/2018: Maintain 15 minute checks for safety and encourage her to be in [place] [facility] however she tends to isolate. Increase Lamictal to 200 mg by mouth daily at bedtime. Maintain Prolixin at current dose. We will observe in follow-up for further titration of medications needed. 12/17/2018: Maintain 15 minute checks for safety and encourage her to be integrated [facility] [place] [facility] therapeutic environment. Today she states that she is going to group. Her plan for aftercare is to finance her bedroom apartment to bring her family up here and she states she has the finances to do that. Discussion team about follow-up care and other community mental health and needs an intake. Estimated Length of Stay: [1 days] Initial Discharge Plan: [[facility] Prognosis: [fair Justification for Inpatient Hospitalization - [Hallucinations, delusions, agitation, anxiety, depression resulting in significant loss of functioning.] (1) Bipolar affective disorder, current episode manic Current Visit: Yes Status: Acute Priority: High Code(s): F31.9 - BIPOLAR DISORDER, UNSPECIFIED SNOMED Code(s): 280547105 (2) Psychosis Current Visit: Yes Status: Acute Priority: High Code(s): F29 - UNSP PSYCH OSIS NOT DUE TO A SUBSTANCE OR KNOWN PHYSIOL COND SNOMED Code(s): 70742402 Time with Patient: Less than 30
[2018-12-17] MEDS: lamoTRIgine 100 MG TAB PO SCH (21:16)
[2018-12-18 07:05] VITALS: BP 101/65; PULSE 70; RESP 12; TEMP 98.3
[2018-12-18] MEDS: NICOTINE 21MG/24HR PATCH TRANSDERM SCH (08:14)
--- NOTE | 2018-12-18 11:06 | P.DS ---
Providers Date of admission: 12/12/18 15:00 Expected date of discharge: 12/18/18 Attending physician: Tariq [place] DO Consults: 12/12/18 17:01 Consult Physician Routine Consulting Provider: Johnny Fitch Consult Reason/Comments: H&P for mental health admission Do you want consulting provider notified?: Yes Primary care physician: Stated None - Discharge Diagnosis(es) (1) Bipolar affective disorder, current episode manic 28-year-old female patient is brought to the emergency department today for psychiatric evaluation. Patient reports that her and is concerned because she recently had her children taken from her and she doesn't believe that she is thinking right or handling the situation well. Patient states that she is stressed out and does have a history of depression. States that she has been seeing "spirits" and helped one "cross over today". Patient states that her aunt is concerned about this and doesn't believe in spirits so she sent her here for further evaluation. Patient denies any suicidal or homicidal ideation. She denies taking any medications currently for psychiatric illness. Denies any alcohol or drug use. Patient denies any recent rash, fever, chills, shortness breath, chest pain, abdominal pain, nausea, vomiting, diarrhea, constipation, back pain, numbness, tingling, dizziness, weakness, hematuria, dysuria, urinary urgency, urinary frequency, headache, visual changes, or any other complaints. Picked up by border patrol and local police as well as petitioned for stating she was hearing multiple voices that were telling her to go to [place]. Patient informs this ghost writer that Her Aunties works with numbers, travels with her and told her to go to [employer] to buy acres for marijuana, growing, also informs this ghost writer that the Auntie told her that she put the numbers together and that 2 people are going to [facility] to kill him. Patient vague about who or where. "Somewhere in [place]. Patient began to weap and scream and states "I am grieving the loss of my children they took on . Patient continuew to perseverate and ruminate with rapid pressure speech regarding her Auntie and also mentioned that "Auntie cannot reach the other side because her family is in trouble." patient is from [place], [place] with unknown hx and residential status. [place] [facility] [place] who informed this ghost writer that the patient was not currently in their system. Patient record archived, staff member Meka to call this ghost writer back with hx if found. Atte shira to call Mom same number as patient no mailbox set up. Will discuss with charge nurse and call Jose Mercer for further assistance. Phone number for [facility]: or . Fax- [phone]. - Related Data Home Medications Medication Instructions Recorded Confirmed No Known Home Medications 12/11/18 12/11/18 Allergies Allergy/AdvReac Type Severity Reaction Status Date / Time clonazepam [From Klonopin] AdvReac TWITCHING Verified 12/11/18 23:16 DISORDER Past Medical History Additional Past Medical History / Comment(s): anxiety History of Any Multi-Drug Resistant Organisms: None Reported Past Surgical History: Bariatric Surgery Past Psychological History: Anxiety, Depression Smoking Status: Current every day smoker Past Alcohol Use History: None Reported Past Drug Use History: None Reported Current Visit: Yes Status: Acute Priority: Low (2) Psychosis Current Visit: Yes Status: Acute Priority: Low Hospital Course: Plan of Care: [Is admitted on a voluntary basis and will leave patient on 15 minute checks. She'll be evaluated by medicine psychiatry social work nursing staff occupational therapy. She'll be placed in [facility] [place] [facility] therapeutic environment or by she'll be evaluated for a biopsychosocial history and substance abuse history. She's had 3 years recovering positive for amphetamines when she came in the hospital. due to her rapid cycling mood she will be placed on lamictal and prolixin.] 12/14/2018: increase prolixin 3 mg po qhs and increase lamictal 50 mg po qhs 12/15/2018: Maintain 15 minute checks for safety and encourage her to be in [place] [facility]. Increase her Lamictal to 100 mg by mouth daily at bedtime 12/16/2018: Maintain 15 minute checks for safety and encourage her to be in [place] [facility] however she tends to isolate. Increase Lamictal to 200 mg by mouth daily at bedtime. Maintain Prolixin at current dose. We will observe in follow-up for further titration of medications needed. 12/17/2018: Maintain 15 minute checks for safety and encourage her to be integrated [facility] [place] [facility] therapeutic environment. Today she states that she is going to group. Her plan for aftercare is to finance her bedroom apartment to bring her family up here and she states she has the finances to do that. Discussion team about follow-up care and other community mental health and needs an intake. Mental status examination time of discharge: The patient presents alert, pleasant, and cooperative. There calmly seated without any agitated behavior. [She] reports that [her ] mood is good. Affect is congruent and euthymic. [She] deny having any suicidal or homicidal ideation intent or plan. [She] denies any auditory or visual hallucinations. There is no evidence of any delusional thought content. [Her] thought process is linear and goal-directed. [Her] speech is fluent and nonpressured. [Her] memory and concentration is grossly intact for the purposes of this session. Patient Condition at Discharge: Stable Plan - Discharge Summary Discharge Rx Participant: Yes New Discharge Prescriptions: New Nicotine 21Mg/24Hr Patch [Habitrol] 1 patch TRANSDERM DAILY 30 Days #30 patch lamoTRIgine [LaMICtal] 200 mg PO 2100 30 Days #60 tab fluPHENAZine [Prolixin] 3 mg PO 2100 30 Days #90 tab Discharge Medication List Nicotine 21Mg/24Hr Patch [Habitrol] 1 patch TRANSDERM DAILY 30 Days #30 patch 12/18/18 [Rx] fluPHENAZine [Prolixin] 3 mg PO 2100 30 Days #90 tab 12/18/18 [Rx] lamoTRIgine [LaMICtal] 200 mg PO 2100 30 Days #60 tab 12/18/18 [Rx] Follow up Appointment(s)/Referral(s): None,Stated [Primary Care Provider] - 1-2 days Activity/Diet/Wound Care/Special Instructions: Activity and Diet as tolerated. Avoid the use of street drugs and alcohol. Take all medications as prescribed, when you are in need of refills contact your medical doctor or psychiatrist. Please go to all scheduled outpatient appointments for aftercare treatment. If symptoms return or worsen you can call the crisis line @ and/or return to the nearest emergency room for evaluation. Discharge Disposition: HOME SELF-CARE
== END 2018-12-18 12:06 | disposition home or self-care (01) | DRG 885 ==
LOC: EC 22:47 → 3MHU 12-12 15:00
PROVIDERS: ADMIT Psychiatry & Neurology Psychiatry; ATTEND Psychiatry & Neurology Psychiatry
DX: F31.2 Bipolar disorder, current episode manic severe with psychotic features (principal); F17.210 Nicotine dependence, cigarettes, uncomplicated; F41.9 Anxiety disorder, unspecified; Z88.8 Allergy status to other drugs, medicaments and biological substances; S61.011D Laceration without foreign body of right thumb without damage to nail, subsequent encounter; W26.0XXD Contact with knife, subsequent encounter
CPT/HCPCS: 80053; 80061; 80306; 81025; 82075; 83036; 84443; 85025; 99285